=== PATIENT | female | born 1980 | race African-American/Black ===

== ENCOUNTER 2018-12-23 09:21 | Emergency (ER) | payer SELFPAY ==
[~2018-12-23] VITALS: Ht 170.2 cm; Wt 100.0 kg
[2018-12-23 11:11] VITALS: BP 120/80
== END 2018-12-23 15:40 | disposition home or self-care (01) ==
LOC: ER 15:32
DX: T78.40XA Allergy, unspecified, initial encounter (principal); F17.210 Nicotine dependence, cigarettes, uncomplicated; X58.XXXA Exposure to other specified factors, initial encounter
CPT/HCPCS: 81025; 99283

== ENCOUNTER 2019-03-03 19:22 | Emergency (ER) | payer OTHER ==
[~2019-03-03] VITALS: Ht 167.6 cm; Wt 101.0 kg
[2019-03-04 01:27] VITALS: BP 125/72
== END 2019-03-04 01:33 | disposition home or self-care (01) ==
LOC: ER 19:22
DX: R07.89 Other chest pain (principal); R42 Dizziness and giddiness; F17.200 Nicotine dependence, unspecified, uncomplicated
CPT/HCPCS: 71045; 81025; 93005; 99283